=== PATIENT | female | born 1955 | race Native Hawaiian/Other Pacific Islander ===

== ENCOUNTER 2017-03-12 06:13 | Day surgery (SDC) | payer OTHER, BC ==
[2017-03-04 12:06] VITALS: BMI 25.4
[2017-03-12] MEDS ORDERED: Tropicamide 1% Opht SOLUTION OD SCH ×2 (06:45→09:00)
[2017-03-12] MEDS ORDERED: Phenylephrine 2.5% Opht Soln OD SCH ×2 (06:45→09:00)
[2017-03-12] MEDS ORDERED: Lactated Ringer's 1,000 ML IV ONE (06:45)
[2017-03-12] MEDS ORDERED: Tetracaine 0.5% Ophth (OR ONLY) ONE (07:21)
[2017-03-12] MEDS: Lidocaine 2% Inj (20ml) ONE ×2 (07:44→07:50)
[2017-03-12] MEDS: Hyaluronidase Human, Recombi 150 U/ML VIAL ONE ×2 (07:44→07:50)
[2017-03-12] MEDS: Povidone Iodine Ophthalmic 5% Soln ONE ×2 (07:45→07:52)
[2017-03-12] MEDS ORDERED: Midazolam 2 MG/2 ML VIAL ONE (07:45)
[2017-03-12] MEDS: Tobramycin/Dexamethasone OPHT OINT ONE ×2 (07:47→08:12)
[2017-03-12] MEDS: Chondroitin/Hyaluronate Opth Syringe KIT (0.55 ml-0.5 ml) IO ONE ×2 (07:48→08:12)
[2017-03-12] MEDS: Carbachol 0.01% IO ONE ×2 (07:55→08:12)
[2017-03-12] MEDS ORDERED: Propofol 10 mg/ml Inj (20 ML) ONE (07:55)
[2017-03-12] MEDS ORDERED: Lidocaine Hydrochloride 5 ML INJ ONE (07:56)
[2017-03-12] MEDS ORDERED: Lactated Ringer's 500 ML IV ONE (09:00)
[2017-03-12 09:21] VITALS: BP 163/75; PULSE 75; RESP 16; TEMP 97.5; O2SAT 98
--- NOTE | 2017-03-13 11:07 | OP ---
PROCEDURE DATE: 03/12/2017 PREOPERATIVE DIAGNOSIS: Nuclear cataract, right eye. POSTOPERATIVE DIAGNOSIS: Nuclear cataract, right eye. OPERATIVE PROCEDURE: Cataract extraction with lens implant, right eye. SURGEON: Doroteo White MD ANESTHESIA: Retrobulbar block. COMPLICATIONS: None. ESTIMATED BLOOD LOSS: 0 mL. PROCEDURE: The patient was brought to the operating room and properly identified. Anesthesia staff administered intravenous sedation and retrobulbar block was given to the surgical eye. The patient was then prepped and draped in the usual sterile fashion. Attention was turned to the surgical eye. A lid speculum was placed into interpalpebral fissure. Sitting temporally, two paracentesis incisions were made. The anterior chamber was filled with viscoelastic and a triplanar clear corneal incision was made. Using a cystitome, anterior capsular leaflet was created. Utrata forceps were used to create a continuous curvilinear capsulorrhexis. Balanced salt solution on a cannula was used to hydrodissect and hydrodelineate the lens. The lens was then phacoemulsified with no complications. Automated irrigation and aspiration was used to remove the cortex. Viscoelastic was used to deepen the anterior chamber. The lens was placed in the capsular bag. Automated irrigation and aspiration was used to remove the viscoelastic. The anterior chamber was filled with Miochol. The wounds were hydrated with balanced salt solution. There was noted to be no leak at the end of the case and the lens was well positioned. The lid speculum was removed. The eye was given antibiotics and steroids and covered with a patch and shield. The patient was returned to the recovery room in stable condition. Doroteo White MD
== END 2017-03-12 09:18 | disposition home or self-care (01) ==
LOC: C.SDS 06:13
PROVIDERS: ATTEND Ophthalmology
DX: H25.11 Age-related nuclear cataract, right eye (principal)
CPT/HCPCS: 66984; 82948; J2250; J2405; J2704; J3010; J3470; J7120

== ENCOUNTER 2017-03-26 06:21 | Day surgery (SDC) | payer OTHER, BC ==
[2017-03-04 12:06] VITALS: BMI 25.4
[~2017-03-26 06:21] MED LIST: Lactated Ringer's 500 ML IV ONE
[2017-03-26] MEDS: Phenylephrine 2.5% Opht Soln OS SCH (06:49)
[2017-03-26 06:53] LABS: GLUCOSE,POC 179 mg/dL (65-110)
[2017-03-26] MEDS: Tropicamide 1% Opht SOLUTION OS SCH (07:09)
[2017-03-26] MEDS: Lactated Ringer's 500 ML IV ONE (07:20)
[2017-03-26] MEDS ORDERED: Propofol 10 mg/ml Inj (20 ML) ONE (07:31)
[2017-03-26] MEDS: Lidocaine 2% Inj (20ml) ONE (07:50)
[2017-03-26] MEDS: Hyaluronidase Human, Recombi 150 U/ML VIAL ONE (07:50)
[2017-03-26] MEDS: Povidone Iodine Ophthalmic 5% Soln ONE (07:51)
[2017-03-26] MEDS: Tetracaine 0.5% Ophth (OR ONLY) ONE (08:00)
[2017-03-26] MEDS: Tobramycin/Dexamethasone OPHT OINT ONE (08:01)
[2017-03-26] MEDS: Carbachol 0.01% IO ONE (08:02)
[2017-03-26] MEDS: Chondroitin/Hyaluronate Opth Syringe KIT (0.55 ml-0.5 ml) IO ONE (08:02)
[2017-03-26 09:02] VITALS: RESP 18; O2SAT 98
[2017-03-26 09:37] VITALS: BP 150/78; PULSE 81; TEMP 98.2
--- NOTE | 2017-03-27 18:21 | OP ---
PROCEDURE DATE: 03/26/2017 PREOPERATIVE DIAGNOSIS: Nuclear mature cataract, left eye. POSTOPERATIVE DIAGNOSIS: Nuclear mature cataract, left eye. OPERATIVE PROCEDURE: Cataract extraction with lens implant, left eye. SURGEON: Dr. Doroteo White. ANESTHESIA: Retrobulbar block. COMPLICATIONS: None. PROCEDURE: The patient was brought to the operating room and properly identified. Anesthesia staff administered intravenous sedation and retrobulbar block was given to the surgical eye. The patient was then prepped and draped in the usual sterile fashion. Attention was turned to the surgical eye. A lid speculum was placed into interpalpebral fissure. Sitting temporally, two paracentesis incisions were made. The anterior chamber was filled with viscoelastic and a triplanar clear corneal incision was made. Using a cystitome, anterior capsular leaflet was created. Utrata forceps were used to create a continuous curvilinear capsulorrhexis. Balanced salt solution on a cannula was used to hydrodissect and hydrodelineate the lens. The lens was then phacoemulsified with no complications. Automated irrigation and aspiration was used to remove the cortex. Viscoelastic was used to deepen the anterior chamber. The lens was placed in the capsular bag. Automated irrigation and aspiration was used to remove the viscoelastic. The anterior chamber was filled with Miochol. The wounds were hydrated with balanced salt solution. There was noted to be no leak at the end of the case and the lens was well positioned. The lid speculum was removed. The eye was given antibiotics and steroids and covered with a patch and shield. The patient was returned to the recovery room in stable condition. Doroteo White MD
== END 2017-03-26 09:15 | disposition home or self-care (01) ==
LOC: C.SDS 06:21
PROVIDERS: ATTEND Ophthalmology
DX: H26.9 Unspecified cataract (principal)